=== PATIENT | female | born 1955 | race Caucasian/White ===

== ENCOUNTER 2017-06-21 09:02 | Emergency (ER) | payer BC ==
[~2017-06-21] VITALS: Ht 167.6 cm; Wt 66.3 kg
[2017-06-21 11:39] LABS: HEMATOCRIT 37.3 % (36.0-46.0); MEAN PLAT.VOLUME 9.1 uM^3 (9.5-12.4); PLATELET COUNT 390 K/uL (156-360); RBC DIS.WIDTH-CV 14.4 % (11.8-14.6); RED BLOOD COUNT 3.97 M/uL (3.80-5.20); WHITE BLOOD COUNT 8.3 K/uL (4.1-10.2)
[2017-06-21 11:53] LABS: CHLORIDE 115 mEq/L (99-109); POTASSIUM 3.2 mEq/L (3.7-5.4); SODIUM 145 mEq/L (136-147)
[2017-06-21 11:55] LABS: GLUCOSE 117 mg/dL (70-99)
[2017-06-21 11:57] LABS: ANION GAP 10 MEQ/L (2-14); TOTAL BILIRUBIN 0.1 mg/dL (0.0-1.0)
[2017-06-21 11:59] LABS: ALKALINE PHOSPHATASE 68 IU/L (3-129); GFR ESTIMATE (CALCULATED) > 59 mL/min/
[2017-06-21 12:00] LABS: UREA NITROGEN (BUN) 16 mg/dL (9-23)
[2017-06-21] MEDS ORDERED: ZOFRAN ODT4 MG PO (12:19)
[2017-06-21] MEDS ORDERED: MOTRIN600 MG PO (12:19)
[2017-06-21] MEDS ORDERED: PEN-VEE K,VEET500 MG PO (12:19)
[2017-06-21] MEDS ORDERED: PERCOCET 5/31 TABLET PO (12:19)
[2017-06-21 12:25] VITALS: BP 134/82
== END 2017-06-21 12:27 | disposition home or self-care (01) ==
LOC: EME 09:02
PROVIDERS: Nurse Practitioner Family
DX: K08.89 Other specified disorders of teeth and supporting structures (principal); B34.9 Viral infection, unspecified; R11.2 Nausea with vomiting, unspecified; R51 Headache
CPT/HCPCS: 70486; 80053; 85027; 99281; 99284